=== PATIENT | male | born 1985 | race Two or more races ===

== ENCOUNTER 2017-10-23 20:47 | Emergency (ER) | payer OTHER ==
[~2017-10-23] VITALS: Ht 185.4 cm; Wt 91.0 kg
[2017-10-23] MEDS ORDERED: OXYCODONE HCL/ACETAMINOPHEN 5/325MG TABLET PO ONE (23:30)
[2017-10-23] MEDS ORDERED: KETOROLAC 60MG/2ML VIAL IM ONE (23:30)
[2017-10-24 01:43] VITALS: BP 130/84
== END 2017-10-24 01:42 | disposition home or self-care (01) ==
LOC: ER 20:47
DX: M54.9 Dorsalgia, unspecified (principal); R55 Syncope and collapse
CPT/HCPCS: 71045; 93005; 96372; 99284; J1885

== ENCOUNTER 2024-02-09 01:53 | Emergency (ER) | payer OTHER ==
[~2024-02-09] VITALS: Ht 182.9 cm; Wt 108.0 kg
[2024-02-09 02:03] VITALS: O2SAT 100
[2024-02-09] MEDS: LORAZEPAM 2MG/ML INJ IV STA (02:14)
[2024-02-09] MEDS: SODIUM CHLORIDE 0.9% 1,000 ML IV ONE (02:15)
[2024-02-09 02:38] LABS: BASOPHILS % 0.8 % (0.0-2.0); EOSINOPHILS % 0.7 % (0.0-5.0); HEMATOCRIT. 42.6 % (42.0-52.0); HEMOGLOBIN. 14.1 g/dL (14.0-18.0); LYMPHOCYTES % 26.6 % (20.0-50.0); MEAN CORPUSCULAR HGB CONC 33.2 g/dL (31.0-37.0); MEAN CORPUSCULAR VOLUME 93.6 fL (80.0-94.0); MEAN PLATELET VOLUME 8.6 fl (7.4-10.4); MONOCYTES % 5.5 % (2.0-8.0); NEUTROPHILS % 66.4 % (40.0-76.0); PLATELET 285 x1000/uL (130-400); RED BLOOD CELL COUNT 4.56 mill/uL (4.7-6.1); RED CELL DISTRIBUTION WIDTH 13.9 % (11.6-14.6); WHITE BLOOD COUNT 6.8 x1000/uL (4.5-11.0)
[2024-02-09 02:49] LABS: CHLORIDE 107 mEq/L (98-107); POTASSIUM 3.6 mEq/L (3.5-5.1); SODIUM 139 mEq/L (136-145)
[2024-02-09 02:50] LABS: CALCIUM 10.2 mg/dL (8.7-10.4); CARBON DIOXIDE 20 mEq/L (21-32)
[2024-02-09 02:55] LABS: CREATININE 1.1 mg/dL (0.6-1.3); ETHANOL BLOOD 115 mg/dL (<10); GLUCOSE 106 mg/dL (70-105); UREA NITROGEN BLOOD 12 mg/dL (9-23)
[2024-02-09 04:20] LABS: TROPONIN I HIGH SENSITIVITY < 4 ng/L (3.0-53)
[2024-02-09 04:40] VITALS: BP 127/69; PULSE 90; RESP 19; TEMP 36.94740; O2SAT 100
== END 2024-02-09 04:40 | disposition home or self-care (01) ==
LOC: ER 01:53
DX: F41.9 Anxiety disorder, unspecified (principal); T51.0X1A Toxic effect of ethanol, accidental (unintentional), initial encounter; F14.10 Cocaine abuse, uncomplicated; F12.10 Cannabis abuse, uncomplicated; Y92.9 Unspecified place or not applicable
CPT/HCPCS: 80048; 80320; 85025; 84484; 36415; 71045; 93005; 99285; J7030; G0480